=== PATIENT | male | born 1965 | race African-American/Black ===

== ENCOUNTER 2019-05-06 17:31 | Inpatient (IN) | payer SELFPAY ==
[2019-05-06] MEDS ORDERED: ACETAMINOPHEN 1000 MG/100 ML VIAL (NON FORMULARY) IVPB ONE (18:04)
[2019-05-06] MEDS ORDERED: LACTATED RINGERS SOLUTION 1000 ML INFUS.BAG IV ONE (18:04)
[2019-05-06] MEDS ORDERED: FAMOTIDINE 20 MG/50 ML IVPB 20 MG/50 ML MG IVPB ONE ×2 (18:09→18:41)
[2019-05-06] MEDS ORDERED: MAG HYDROX/AL HYDROX/SIMETH 30 ML UNIT-DOSE CUP PO ONE (18:10)
--- NOTE | 2019-05-06 18:12 | PDOC ---
History of Present Illness - General Chief Complaint: Pain Stated Complaint: FLU LIKE SYMPTOMS NOT EATING Time Seen by Provider: 05/06/19 17:38 History Source: Patient, Friend Exam Limitations: No Limitations - History of Present Illness Initial Comments: HPI: 53 y/o male presenting to [place] [facility] complaining of generalized body aches, malaise, subjective fevers, chills, diaphoresis. Symptoms started when he returned from a trip to [place] on Friday. Decreased appetite but drinking fluids with normal urinary frequency. Developed persistent hiccups two days ago. Has been taking Theraflu, Acetaminophen, and Dimetapp with some temporary symptom improvement. Pt is accompanied by a close friend who reports the pt appeared more sick this afternoon. She observed more generalized weakness and noticed the pt had a bowel movement while on the sofa. Pt states he was unable to make it to the bathroom. No swelling or tenderness in his calves. No personal or family history of bleeding disorders. Social Hx: - EtOH: social, last used in [place] - Tobacco: Remote smoking history - Street drugs: Denies - Denies OTC vitamins, supplements Medical Hx: - Asthma, managed with Symbicort Surgical Hx: - Remote knee surgery Review of Systems: In addition to that documented in the HPI above, the additional ROS was obtained : Constitutional- Endorses fevers and chills Head- Denies vision changes ENMT- Denies sore throat CV- Denies chest pain Resp- Denies SOB, wheezing, cough GI- Denies abdominal pain, vomiting, or diarrhea - Denies painful urination, hematuria MSK- Denies recent trauma Skin- Denies new rashes Neuro- Denies new numbness or tingling or weakness Endocrine- Denies polyuria Heme- Denies bleeding or bruising Physical Examination: Vital signs and nursing notes reviewed. Constitutional- Puny appearing adult male in no acute distress but mild obvious discomfort. Found semi-fowlers on hospital stretcher. Head- Normocephalic. No obvious external signs of trauma. Eyes- PERRL. EOMI. No nystagmus. Sclerae white. Conjunctiva moist and not injected. Ears- Hearing grossly intact. Nose- No nasal discharge. Throat- Oral cavity and pharynx normal. No inflammation, swelling, exudate, or lesions. Teeth and gingiva in good general condition. Neck- Supple, trachea is midline. Cardiovascular / Chest- Regular rate and regular rhythm. No murmur, rubs, clicks , or gallops. Peripheral pulses- radial pulses full. No pretibial edema. Respiratory- Breathing mildly labored. Frequent hiccups. Equal chest rise and fall. Diffuse rhonchi in left posterior burnett. No stridor, wheezing, or rales. Gastrointestinal- Discomfort in LUQ without grimace, rebound, or guarding. Able to transition from supine to fowlers without obvious discomfort. No hepatosplenomegaly. No pulsatile masses. No overlying skin lesions or obvious signs of trauma. Neuro- Alert and oriented x4, but slowed speech with frequent pausing before recollecting answers. Moving all four extremities spontaneously. No facial asymmetry. No slurred speech. Sensation to all four extremities intact. No nuchal rigidity. Intact finger to nose. MSK- No diffuse tenderness to paraspinal or direct spinal tenderness in lumbar region. Skin- Warm, dry, and intact. No bruising, rashes, or other lesions. - No R or L CVA tenderness. Psych- Affect- appropriate. Mood- normal. Speech was non-labored, non- pressured. MDM: 53 y/o male presenting with generalized weakness, myalgias, fevers, chills, diaphoresis. Febrile at triage. Vitals unremarkable for hypotension or tachycardia. Physical exam as described above. Noted borderline hypoxic on room air; secondary to hiccups? Possible influenza with generalized fatigue, however unclear cause for hiccups and slowed mentation. Ordered Lipase and CMP to evaluate for possible biliary vs pancreatic pathology given the abdominal discomfort - possibly causing diaphragmatic irritation (low suspicion). Will evaluate for PNA with CXR. Will evaluate for ICH with HCT. Low suspicion for CVA. Ordered LR IVFB, Acetaminophen, Pepcid, Maaylox, and Relgan for symptom relief. 06 May 2019 19:03 PM Pt signed out to ED Attending Dr. Maldonado after he was verbally appraised of the pts HPI, current ED course, and plan of management. Will f/u pending labs and imaging results. Dispo pending. Luigi Melton M.D., PGY2 Emergency Medicine Resident Past History - Past Medical History Allergies/Adverse Reactions: Allergies Allergy/AdvReac Type Severity Reaction Status Date / Time shellfish derived Allergy Intermediate Itching Verified 05/06/19 17:33 Home Medications: Ambulatory Orders Budesonide/Formeterol Fumarate [SYMBICORT 160/4.5mcg -] 1 puff IN DAILY Asthma: Yes COPD: No - Psycho Social/Smoking Cessation Hx Smoking History: Never smoked Information on smoking cessation initiated: No Hx Alcohol Use: No Drug/Substance Use Hx: No *Physical Exam - Vital Signs Last Vital Signs Temp Pulse Resp BP Pulse Ox 100.6 F H 62 16 130/86 96 05/06/19 17:33 05/06/19 17:33 05/06/19 17:33 05/06/19 17:33 05/06/19 17:33 ED Treatment Course - LABORATORY CBC & Chemistry Diagram: 05/06/19 18:25 05/06/19 18:20 - RADIOLOGY Radiology Studies Ordered: Category Date Time Status HEAD CT WITHOUT CONTRAST [CT] Stat CT Scan 05/06/19 18:10 Ordered CHEST PA & LAT [RAD] Stat Radiology 05/06/19 18:03 Ordered Discharge - Discharge Information Problems reviewed: Yes Clinical Impression/Diagnosis: Fever Qualifiers: Fever type: unspecified Qualified Code(s): R50.9 - Fever, unspecified Condition: Stable - Follow up/Referral - Patient Discharge Instructions - Post Discharge Activity
[2019-05-06] MEDS ORDERED: METOCLOPRAMIDE HCL INJECTION 10 MG/2 ML VIAL IVPB ONE (18:35)
--- NOTE | 2019-05-06 18:40 | PDOC ---
Attending Attestation - Resident Resident Name: Luigi Melton - ED Attending Attestation I have performed the following: I have examined & evaluated the patient, The case was reviewed & discussed with the resident, I agree w/resident's findings & plan, Exceptions are as noted - HPI HPI: 05/06/19 18:35 53 M with h/o asthma presenting to ED with 5 days of bodyaches, fevers, and malaise. Pt states that since he got back from [place] on Friday, he has been feeling sick. He reports pain all over his body. Pt also reports hiccups that started 3 days ago. Denies CP or SOB but states that the hiccups prevent him from breathing normally. Pt also reports an episode of diarrhea without nausea or vomiting. Pt's friend at bedside states that he has been very lethargic and weak, stumbling when he walks. Pt denies any dizziness. Denies KLEIN. Denies neck pain or stiffness. No falls. - Physicial Exam PE: 05/06/19 18:40 "GENERAL: Awake, alert, and fully oriented, in no acute distress. HEAD: No signs of trauma EYES: PERRLA, EOMI, sclera anicteric, conjunctiva clear ENT: Auricles normal inspection, hearing grossly normal, nares patent, oropharynx clear without exudates. Moist mucosa NECK: Nontender, no stepoffs, Normal ROM, supple, no lymphadenopathy, JVD, or masses LUNGS: Breath sounds equal, clear to auscultation bilaterally. No wheezes, and no crackles HEART: Regular rate and rhythm, normal S1 and S2, no murmurs, rubs or gallops ABDOMEN: Soft, nontender, normoactive bowel sounds. No guarding, no rebound. No masses EXTREMITIES: Normal range of motion, no edema. No clubbing or cyanosis. No cords, erythema, or tenderness NEUROLOGICAL: Cranial nerves II through XII intact. 5/5 strength and sensation in all extremities, Normal speech, normal gait, normal cerebellar function SKIN: Warm, Dry, normal turgor, no rashes or lesions noted. - Medical Decision Making 05/06/19 18:40 53 M with fevers, bodyaches, hiccups. Suspect viral infection, possibly flu. Pt without any signs of meningitis. No neuro deficits on exam. However, given report of stumbling, will obtain head CT. - Labs - CT head - CXR, UA - Flu swab - IVF, Tylenol, GI cocktail Pt signed out to oncoming attending at 7PM, pending labs, imaging, and re- evaluation
[2019-05-06] MEDS ORDERED: MAG HYDROX/AL HYDROX/SIMETH 30 ML UNIT-DOSE CUP ONE (18:41)
[2019-05-06] MEDS ORDERED: METOCLOPRAMIDE HCL INJECTION 10 MG/2 ML VIAL ONE (18:41)
[2019-05-06] MEDS ORDERED: ACETAMINOPHEN INJECTION 100 ML IVPB ONE (18:41)
[2019-05-06 18:43] LABS: BASO % 0.1 % (0-2.0); HEMATOCRIT 37.7 % (35.4-49); HEMOGLOBIN 12.8 GM/dl (11.7-16.9); LYMPH % 8.5 % (8-40); MCH 30.3 pg (25.7-33.7); MCHC 34.1 g/dl (32.0-35.9); MEAN PLT VOLUME 9.1 fl (7.5-11.1); MONO % 7.6 % (3.8-10.2); NEUT % 83.8 % (42.8-82.8); PLATELET COUNT 137 K/MM3 (134-434); RBC 4.24 M/mm3 (4.00-5.60); RDW 13.3 % (11.9-15.9)
[2019-05-06 18:55] LABS: ALBUMIN 2.9 g/dl (3.4-5.0); BILIRUBIN,TOTAL 0.8 mg/dl (0.2-1); CALCIUM 7.8 mg/dl (8.5-10); CREATININE 2.4 mg/dl (0.55-1.3); MAGNESIUM 1.8 mg/dL (1.8-2.4); PHOSPHOROUS 2.1 mg/dl (2.5-4.9); POTASSIUM 3.2 mmol/L (3.5-5.1); TOT PROT 6.5 g/dl (6.4-8.2)
--- NOTE | 2019-05-06 19:41 | PDOC ---
*Physical Exam - Vital Signs Last Vital Signs Temp Pulse Resp BP Pulse Ox 100.6 F H 62 16 130/86 96 05/06/19 17:33 05/06/19 17:33 05/06/19 17:33 05/06/19 17:33 05/06/19 17:33 ED Treatment Course - LABORATORY CBC & Chemistry Diagram: 05/06/19 18:25 05/06/19 18:20 - ADDITIONAL ORDERS Additional order review: Laboratory Results 05/06/19 05/06/19 05/06/19 18:40 18:20 18:20 Sodium 126 L Potassium 3.2 L Chloride 92 L Carbon Dioxide 25 Anion Gap 9 BUN 27.0 H Creatinine 2.4 H Est GFR (CKD-EPI)AfAm 34.40 Est GFR (CKD-EPI)NonAf 29.68 Random Glucose 150 H Calcium 7.8 L Phosphorus 2.1 L Magnesium 1.8 Total Bilirubin 0.8 AST 140 H ALT 55 Alkaline Phosphatase 56 Creatine Kinase 3495 H Troponin I 0.32 H Total Protein 6.5 Albumin 2.9 L 05/06/19 18:25 RBC 4.24 MCV 89.0 MCHC 34.1 RDW 13.3 MPV 9.1 Neutrophils % 83.8 H Lymphocytes % 8.5 Monocytes % 7.6 Eosinophils % 0.0 Basophils % 0.1 - RADIOLOGY Radiology Studies Ordered: Category Date Time Status CHEST CT WITHOUT CONTRAST [CT] Stat CT Scan 05/06/19 19:37 Ordered - Medications Given in the ED: ED Medications Discontinued Medications Generic Name Dose Route Start Last Admin Trade Name Freq PRN Reason Stop Dose Admin Acetaminophen 1,000 mg 05/06/19 18:04 05/06/19 19:02 Ofirmev Injection - IVPB 05/06/19 18:05 1,000 mg ONCE ONE Administration Al Hydroxide/Mg Hydroxide 30 ml 05/06/19 18:10 05/06/19 19:03 Mylanta Oral Suspension - PO 05/06/19 18:11 30 ml ONCE ONE Administration Famotidine/Sodium Chloride 20 mg in 50 mls @ 100 mls/hr 05/06/19 18:09 19:11 Pepcid 20 Mg Premixed Ivpb - IVPB 05/06/19 18:38 100 mls/hr ONCE ONE Administration Lactated Ringer's 1,000 ml 05/06/19 18:04 05/06/19 19:02 Lactated Ringers Solution IV 05/06/19 18:05 1,000 ml ONCE ONE Administration Metoclopramide HCl 10 mg 05/06/19 18:35 05/06/19 19:22 Reglan Injection - IVPB 05/06/19 18:36 10 mg ONCE ONE Administration Medical Decision Making - Medical Decision Making 05/06/19 19:[address] Gomez and Dr. Melton around 7pm. Pt is a 53y M hx of asthma presents with several days of body aches, fevers, malaise and cough since getting back from [place]. Pt notes a non productive cough w/o leg swelling/hemoptysis. also notes constant hiccups. Pt ntos an episode of diarrhea prior to arrival, but denies any abd pain, headache, neck pain, cp, grossman, leg swelling. on exanm: pt diaphoretic rales on L base rrr, no mrg abd soft nontender no edema or calft enderness, negative homans labs reviewed and noted for suspected TAMI (no baseline), trop elev to .3, ekg non ischemic. +leukocytosis cxr noted for LLL infiltrate awaiting CT to further evaluate consolidation vs wedge infarct/PE (unable to obtain CTA due to the patients cr) will give community acquired pna abx sepsis orderset initiated anticipate admission for further management 05/06/19 20:50 ct chest noted for pna, suspect his hiccups may be due to phrenic nerve irritateion based on location of pna. also consider legionella with hyponateemia Discharge - Discharge Information Problems reviewed: Yes Clinical Impression/Diagnosis: TAMI (acute kidney injury), Hyponatremia, Sepsis due to pneumonia Pneumonia Qualifiers: Pneumonia type: due to unspecified organism Laterality: left Lung location: lower lobe of lung Qualified Code(s): J18.9 - Pneumonia, unspecified organism Condition: Guarded - Admission Yes - Follow up/Referral - Patient Discharge Instructions - Post Discharge Activity
[2019-05-06] MEDS ORDERED: SODIUM CHLORIDE 1,000 ML IV ONE (19:43)
[2019-05-06] MEDS ORDERED: CEFTRIAXONE 1 GM in DEXTROSE 5%-WATER - 50 ML IVPB ONE (19:58)
[2019-05-06] MEDS ORDERED: AZITHROMYCIN IVPB 500 MG in DEXTROSE 5%-WATER - 250 ML IVPB ONE (19:59)
[2019-05-06] MEDS ORDERED: cefTRIAXone SODIUM 1 GM VIAL ONE (20:42)
[2019-05-06] MEDS ORDERED: AZITHROMYCIN 500 MG VIAL IVPB ONE (21:09)
--- NOTE | 2019-05-06 21:24 | HP ---
CHIEF COMPLAINT: Fever, body aches, weakness PCP: Dr. Yeh HISTORY OF PRESENT ILLNESS: 53 year-old male with no significant PMH, presented to [facility] for evaluation of body aches, malaise, sweats and chills. Symptoms started six days ago when he returned from a trip to [place]. Self-treated with OTC remedies. Decreased PO intake Family members report patient's seemed slightly confused, his gait was unsteady, and he an episode of fecal incontinence which prompted them to bring him to the ED. 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[place], last there in November 2018; traveled to [place] this past weekend, stayed at a private home and at the [employer] Smoking: quit 22 years ago Alcohol: occasional beer Drugs: denies Family history: father 70s of pneumonia; mother a&w; brother and sister a&w ; 1 son a&w Allergies shellfish derived Allergy (Intermediate, Verified 05/06/19 17:33) Itching HOME MEDICATIONS: Home Medications Medication Instructions Recorded Budesonide/Formeterol Fumarate 1 puff IN DAILY 05/06/19 [SYMBICORT 160/4.5mcg -] REVIEW OF SYSTEMS CONSTITUTIONAL: +sweats, chills, weakness, body aches, loss of appetite Absent: weight change HEENT: Absent: rhinorrhea, nasal congestion, throat pain, throat swelling, difficulty swallowing, mouth swelling, ear pain, eye pain, visual changes CARDIOVASCULAR: Absent: chest pain, syncope, palpitations, irregular heart rate, lightheadedness , peripheral edema RESPIRATORY: Absent: cough, shortness of breath, dyspnea with exertion, orthopnea, wheezing, stridor, hemoptysis GASTROINTESTINAL: Absent: abdominal pain, abdominal distension, nausea, vomiting, diarrhea, constipation, melena, hematochezia GENITOURINARY: Absent: dysuria, frequency, urgency, hesitancy, hematuria, flank pain, genital pain MUSCULOSKELETAL: Absent: myalgia, arthralgia, joint swelling, back pain, neck pain SKIN: Absent: rash, itching, pallor HEMATOLOGIC/IMMUNOLOGIC: Absent: easy bleeding, easy bruising, lymphadenopathy, frequent infections ENDOCRINE: Absent: unexplained weight gain, unexplained weight loss, heat intolerance, cold intolerance NEUROLOGIC: Absent: headache, focal weakness or paresthesias, dizziness, unsteady gait, seizure, mental status changes, bladder or bowel incontinence PSYCHIATRIC: Absent: anxiety, depression, suicidal or homicidal ideation, hallucinations. PHYSICAL EXAMINATION Vital Signs - 24 hr 05/06/19 05/06/19 17:33 20:35 Temperature 100.6 F H 99.5 F Pulse Rate 62 Pulse Rate [ 104 H Left Radial] Respiratory 16 16 Rate Blood Pressure 130/86 Blood Pressure 135/87 [Left Arm] O2 Sat by Pulse 96 96 Oximetry (%) GENERAL: A&Ox3; speech content is appropriate but occasionally delayed responses HEAD: Normal with no signs of trauma. EYES: Pupils equal, round and reactive to light, extraocular movements intact, sclera anicteric, conjunctiva clear. No lid lag. EARS, NOSE, THROAT: Ears normal, nares patent, oropharynx clear without exudates. Dry mucous membranes. NECK: Normal range of motion, supple without lymphadenopathy, JVD, or masses. LUNGS: Diminished at the bases HEART: Regular rate and rhythm, normal S1 and S2 ABDOMEN: Soft, nontender, not distended, normoactive bowel sounds MUSCULOSKELETAL: Normal range of motion at all joints. No bony deformities or tenderness. No CVA tenderness. UPPER EXTREMITIES: 2+ pulses, warm, well-perfused. No cyanosis. No clubbing. No peripheral edema. LOWER EXTREMITIES: 2+ pulses, warm, well-perfused. No calf tenderness. No peripheral edema. NEUROLOGICAL: Cranial nerves II-XII intact. Normal speech. Ataxic gait Laboratory Results - last 24 hr 05/06/19 05/06/19 05/06/19 18:20 18:20 18:20 WBC RBC Hgb Hct MCV MCH MCHC RDW Plt Count MPV Absolute Neuts (auto) Neutrophils % Lymphocytes % Monocytes % Eosinophils % Basophils % D-Dimer < 215 Sodium 126 L Potassium 3.2 L Chloride 92 L Carbon Dioxide 25 Anion Gap 9 BUN 27.0 H Creatinine 2.4 H Est GFR (CKD-EPI)AfAm 34.40 Est GFR (CKD-EPI)NonAf 29.68 Random Glucose 150 H Calcium 7.8 L Phosphorus Magnesium Total Bilirubin 0.8 AST 140 H ALT 55 Alkaline Phosphatase 56 Creatine Kinase 3495 H Creatine Kinase Index 0.5 CK-MB (CK-2) 18.4 H Troponin I Total Protein 6.5 Albumin 2.9 L Lipase Influenza A (Rapid) Negative Influenza B (Rapid) Negative 05/06/19 05/06/19 05/06/19 18:20 18:25 18:40 WBC 13.0 H RBC 4.24 Hgb 12.8 Hct 37.7 MCV 89.0 MCH 30.3 MCHC 34.1 RDW 13.3 Plt Count 137 MPV 9.1 Absolute Neuts (auto) 10.9 Neutrophils % 83.8 H Lymphocytes % 8.5 Monocytes % 7.6 Eosinophils % 0.0 Basophils % 0.1 D-Dimer Sodium Potassium Chloride Carbon Dioxide Anion Gap BUN Creatinine Est GFR (CKD-EPI)AfAm Est GFR (CKD-EPI)NonAf Random Glucose Calcium Phosphorus 2.1 L Magnesium 1.8 Total Bilirubin AST ALT Alkaline Phosphatase Creatine Kinase Creatine Kinase Index CK-MB (CK-2) Troponin I 0.32 H Total Protein Albumin Lipase 57 L Influenza A (Rapid) Influenza B (Rapid) ASSESSMENT/PLAN: 53 year-old male with no significant PMH, presented to the [facility] for evaluation of body aches, malaise, sweats and chills. Admitted for sepsis secondary to CAP. 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 Full code. Visit type - Emergency Visit Emergency Visit: Yes ED Registration Date: 05/06/19 Care time: The patient presented to the Emergency Department on the above date and was hospitalized for further evaluation of their emergent condition. - New Patient This patient is new to me today: Yes Date on this admission: 05/08/19 - Critical Care Critical Care patient: Yes Total Critical Care Time (in minutes): 60 Critical Care Statement: The care of this patient involved high complexity decision making to prevent further life threatening deterioration of the patient 's condition and/or to evaluate & treat vital organ system(s) failure or risk of failure.
[2019-05-06 22:33] VITALS: BMI 30.2
[2019-05-06 22:45] LABS: VENOUS PC02 40.5 mmHg (38-52); VENOUS PH 7.41 (7.31-7.41); VENOUS PO2 < 49 mmHg (28-48)
[2019-05-06] MEDS ORDERED: SODIUM CHLORIDE 1,000 ML IV STA (22:47)
[2019-05-06 23:30] LABS: AMORP URATES 1+ /hpf (NONE SEEN)
[2019-05-06 23:31] LABS: URINE HYALINE CAST FEW /lpf
[2019-05-07] MEDS: POTASSIUM CHLORIDE TABS 20 MEQ TABLET.ER (FP) PO SCH ×2 (00:05→04:52)
[2019-05-07] MEDS: ALBUTEROL SO4 2.5/IPRATROPIUM 0.5 INH SOL 3 ML VIAL.NEB. NEB SCH ×5 (00:37→21:45)
[2019-05-07] MEDS ORDERED: ACETAMINOPHEN 325 MG TABLET (FP) PO ONE (05:50)
[2019-05-07] MEDS: HEPARIN NA (PORCINE) 5,000 UNITS/ML 1ML VIAL SQ SCH ×3 (06:00→21:45)
[2019-05-07 07:35] LABS: BLOOD UREA NITROGEN 30.2 mg/dL (7-18); CALCIUM 8.1 mg/dL (8.5-10.1); CREATININE 2.4 mg/dL (0.55-1.3); POTASSIUM 3.7 mmol/L (3.5-5.1)
[2019-05-07 08:00] LABS: BASO % 0.3 % (0-2.0); EOS % 0.1 % (0-4.5); HEMATOCRIT 38.8 % (35.4-49); HEMOGLOBIN 12.9 GM/dl (11.7-16.9); MCH 29.9 pg (25.7-33.7); MCHC 33.3 g/dl (32.0-35.9); MEAN CELL VOLUME 89.7 fl (80-96); MEAN PLT VOLUME 9.6 fl (7.5-11.1); MONO % 6.6 % (3.8-10.2); PLATELET COUNT 146 K/MM3 (134-434); RBC 4.32 M/mm3 (4.00-5.60); RDW 13.5 % (11.9-15.9); WHITE BLOOD COUNT 11.1 K/mm3 (4.0-10.8)
[2019-05-07] MEDS ORDERED: ALBUTEROL SO4 2.5/IPRATROPIUM 0.5 INH SOL 3 ML VIAL.NEB. NEB SCH (08:00)
[2019-05-07 08:05] LABS: ACTIVATED PTT 32.7 SECONDS (25.2-36.5)
[2019-05-07 08:10] LABS: INR 1.32 (0.82-1.09); PROTHROMBIN TIME (PATIENT) 14.7 SEC (10.2-13.0)
[2019-05-07 08:11] LABS: ALBUMIN 2.9 g/dl (3.4-5.0); BILIRUBIN,TOTAL 0.4 mg/dl (0.2-1); CALCIUM 8.1 mg/dl (8.5-10); CREATININE 2.3 mg/dl (0.55-1.3); POTASSIUM 3.8 mmol/L (3.5-5.1); TOT PROT 6.5 g/dl (6.4-8.2)
[2019-05-07] MEDS ORDERED: SODIUM CHLORIDE 1,000 ML IV STA (08:51)
[2019-05-07] MEDS ORDERED: AZITHROMYCIN IVPB 500 MG/250 ML BAG IVPB SCH (10:00)
[2019-05-07] MEDS ORDERED: CEFTRIAXONE 1 G/50 ML PREMIX 50 ML IVPB SCH (10:00)
[2019-05-07] MEDS: BUDESONIDE/FORMETEROL FUMARATE 160/4.5 mcg INHALER IH SCH (10:55)
[2019-05-07] MEDS ORDERED: PT OWN MED DRAWER 7, Y5N ONE (11:11)
--- NOTE | 2019-05-07 13:11 | EKG ---
Test Reason : Blood Pressure : / mmHG Vent. Rate : 115 BPM Atrial Rate : 115 BPM P-R Int : 126 ms QRS Dur : 096 ms QT Int : 306 ms P-R-T Axes : 044 -45 041 degrees QTc Int : 423 ms SINUS TACHYCARDIA WITH FREQUENT PREMATURE VENTRICULAR COMPLEXES LEFT ANTERIOR FASCICULAR BLOCK ABNORMAL ECG NO PREVIOUS ECGS AVAILABLE Confirmed by DAY HEALY MD ([id number]) on 05/07/2019 1:10:37 PM Referred By: Prosper GLEZ Confirmed By:DAY HEALY MD
[2019-05-07] MEDS: SODIUM CHLORIDE 1,000 ML IV SCH (14:11)
[2019-05-07] MEDS: ACETAMINOPHEN 1000 MG/100 ML VIAL (NON FORMULARY) IVPB PRN ×2 (14:11→22:40)
[2019-05-07 14:48] LABS: BASO % 0.1 % (0-2.0); EOS % 0.1 % (0-4.5); HEMATOCRIT 35.5 % (35.4-49); HEMOGLOBIN 11.7 GM/dl (11.7-16.9); LYMPH % 7.1 % (8-40); MCH 29.5 pg (25.7-33.7); MEAN CELL VOLUME 89.7 fl (80-96); MEAN PLT VOLUME 9.9 fl (7.5-11.1); MONO % 6.4 % (3.8-10.2); NEUT % 86.3 % (42.8-82.8); PLATELET COUNT 141 K/MM3 (134-434); RBC 3.96 M/mm3 (4.00-5.60); RDW 14.1 % (11.9-15.9); WHITE BLOOD COUNT 10.3 K/mm3 (4.0-10.8)
[2019-05-07 14:59] LABS: ALBUMIN 2.5 g/dl (3.4-5.0); BILIRUBIN,TOTAL 0.5 mg/dl (0.2-1); CALCIUM 7.5 mg/dl (8.5-10); POTASSIUM 3.6 mmol/L (3.5-5.1)
[2019-05-07 15:06] LABS: BILIRUBIN,DIRECT 0.1 mg/dL (0.0-0.2)
--- NOTE | 2019-05-07 16:55 | CON.ID ---
Consult Consult Specialty:: infectious diseases Referred by:: Jailyn Reason for Consultation:: fever,confusion - History of Present Illness Chief Complaint: fever,weakness History of Present Illness: 53 y/o male complaining of generalized body aches, malaise, subjective fevers, chills, diaphoresis. Symptoms started when he returned from a trip to [place] on Friday. Decreased appetite but drinking fluids with normal urinary frequency. Developed persistent hiccups two days ago. Has been taking Theraflu, Acetaminophen, and Dimetapp with some temporary symptom improvement. patient was worked up and found to have legionella currently patient starting to feel better - History Source History Provided By: Patient, Medical Record Limitations to Obtaining History: No Limitations - Alcohol/Substance Use Hx Alcohol Use: Yes (sometimes) - Smoking History Smoking history: Never smoked Home Medications - Allergies Allergies/Adverse Reactions: Allergies Allergy/AdvReac Type Severity Reaction Status Date / Time shellfish derived Allergy Intermediate Itching Verified 05/06/19 17:33 - Home Medications Home Medications: Ambulatory Orders Budesonide/Formeterol Fumarate [SYMBICORT 160/4.5mcg -] 1 puff IN DAILY Review of Systems - Review of Systems Constitutional: reports: Chills, Fever HENT: reports: No Symptoms Neck: reports: No Symptoms Cardiovascular: reports: No Symptoms Gastrointestinal: reports: No Symptoms Musculoskeletal: reports: No Symptoms Integumentary: reports: No Symptoms Neurological: reports: Confusion Endocrine: reports: No Symptoms Hematology/Lymphatic: reports: No Symptoms Psychiatric: reports: No Symptoms Physical Exam Vital Signs: Vital Signs Temperature 100.1 F H 05/07/19 14:00 Pulse Rate 112 H 05/07/19 14:00 Respiratory Rate 19 05/07/19 14:00 Blood Pressure 169/72 05/07/19 14:00 O2 Sat by Pulse Oximetry (%) 96 05/07/19 07:55 Constitutional: Yes: Well Nourished, No Distress, Calm Eyes: Yes: Conjunctiva Clear HENT: Yes: Atraumatic, Normocephalic Neck: Yes: Supple, Trachea Midline Respiratory: Yes: Regular, Poor Air Entry Gastrointestinal: Yes: Normal Bowel Sounds, Soft Musculoskeletal: Yes: WNL Extremities: Yes: WNL Neurological: Yes: Alert, Oriented Labs: CBC, BMP 05/07/19 14:25 05/07/19 14:25 Imaging - Results Chest X-ray: Report Reviewed, Image Reviewed Cat Scan: Report Reviewed, Image Reviewed Assessment/Plan sepsis pneumonia leginoella fever confusion pam rhabdo plan continue levaquin hydration monitor fevers await for all reports rest as per the team
--- NOTE | 2019-05-07 22:05 | PN ---
Documentation entered by Isidra Li SCRIBE, acting as scribe for Rhea Chicas NP. Physical Exam: SUBJECTIVE: Patient seen and examined. Pt c/o of hiccups. States feeling his leg muscles are stiff, otherwise states slowly regaining his strength back. OBJECTIVE: Vital Signs Period Temp Pulse Resp BP Sys/Callahan Pulse Ox Last 24 Hr 98.5 F-101.9 F 62-106 16-20 130-152/74-87 96-96 GENERAL: A&Ox3; speech content is appropriate but still with occasionally delayed responses; could not do serial 7s LUNGS: Diminished at the bases HEART: Regular rate and rhythm, normal S1 and S2 ABDOMEN: Soft, nontender, not distended, normoactive bowel sounds MUSCULOSKELETAL: Normal range of motion at all joints. No bony deformities or tenderness. No CVA tenderness. UPPER EXTREMITIES: 2+ pulses, warm, well-perfused. No cyanosis. No clubbing. No peripheral edema. LOWER EXTREMITIES: 2+ pulses, warm, well-perfused. No calf tenderness. No peripheral edema. NEUROLOGICAL: Cranial nerves II-XII intact. Normal speech. Gait not observed today. Laboratory Results - last 24 hr 05/06/19 05/06/19 05/06/19 18:20 18:20 18:20 WBC RBC Hgb Hct MCV MCH MCHC RDW Plt Count MPV Absolute Neuts (auto) Neutrophils % Lymphocytes % Monocytes % Eosinophils % Basophils % PT with INR INR PTT (Actin FS) D-Dimer < 215 VBG pH POC VBG pCO2 POC VBG pO2 VBG HCO3 VBG O2 Sat (Regi) VBG Base Excess Sodium 126 L Potassium 3.2 L Chloride 92 L Carbon Dioxide 25 Anion Gap 9 BUN 27.0 H Creatinine 2.4 H Est GFR (CKD-EPI)AfAm 34.40 Est GFR (CKD-EPI)NonAf 29.68 Random Glucose 150 H Lactic Acid Calcium 7.8 L Phosphorus Magnesium Total Bilirubin 0.8 AST 140 H ALT 55 Alkaline Phosphatase 56 Ammonia Creatine Kinase 3495 H Creatine Kinase Index 0.5 CK-MB (CK-2) 18.4 H Troponin I Total Protein 6.5 Albumin 2.9 L Lipase Urine Color Urine Appearance Urine pH Urine Protein Urine Glucose (UA) Urine Ketones Urine Blood Urine Nitrite Urine Bilirubin Urine Urobilinogen Ur Leukocyte Esterase Urine RBC Urine WBC Amorphous Urates Urine Bacteria Hyaline Casts Ur Random Creatinine Ur Random Sodium Influenza A (Rapid) Negative Influenza B (Rapid) Negative 05/06/19 05/06/19 05/06/19 18:20 18:25 18:40 WBC 13.0 H RBC 4.24 Hgb 12.8 Hct 37.7 MCV 89.0 MCH 30.3 MCHC 34.1 RDW 13.3 Plt Count 137 MPV 9.1 Absolute Neuts (auto) 10.9 Neutrophils % 83.8 H Lymphocytes % 8.5 Monocytes % 7.6 Eosinophils % 0.0 Basophils % 0.1 PT with INR INR PTT (Actin FS) D-Dimer VBG pH POC VBG pCO2 POC VBG pO2 VBG HCO3 VBG O2 Sat (Regi) VBG Base Excess Sodium Potassium Chloride Carbon Dioxide Anion Gap BUN Creatinine Est GFR (CKD-EPI)AfAm Est GFR (CKD-EPI)NonAf Random Glucose Lactic Acid Calcium Phosphorus 2.1 L Magnesium 1.8 Total Bilirubin AST ALT Alkaline Phosphatase Ammonia Creatine Kinase Creatine Kinase Index CK-MB (CK-2) Troponin I 0.32 H Total Protein Albumin Lipase 57 L Urine Color Urine Appearance Urine pH Urine Protein Urine Glucose (UA) Urine Ketones Urine Blood Urine Nitrite Urine Bilirubin Urine Urobilinogen Ur Leukocyte Esterase Urine RBC Urine WBC Amorphous Urates Urine Bacteria Hyaline Casts Ur Random Creatinine Ur Random Sodium Influenza A (Rapid) Influenza B (Rapid) 05/06/19 05/06/19 05/06/19 20:25 20:56 21:00 WBC RBC Hgb Hct MCV MCH MCHC RDW Plt Count MPV Absolute Neuts (auto) Neutrophils % Lymphocytes % Monocytes % Eosinophils % Basophils % PT with INR INR PTT (Actin FS) D-Dimer VBG pH 7.41 POC VBG pCO2 40.5 POC VBG pO2 < 49 H VBG HCO3 25.0 VBG O2 Sat (Regi) 61.6 L VBG Base Excess 0.8 Sodium Potassium Chloride Carbon Dioxide Anion Gap BUN Creatinine Est GFR (CKD-EPI)AfAm Est GFR (CKD-EPI)NonAf Random Glucose Lactic Acid 1.6 Calcium Phosphorus Magnesium Total Bilirubin AST ALT Alkaline Phosphatase Ammonia Creatine Kinase Creatine Kinase Index CK-MB (CK-2) Troponin I 0.32 H Total Protein Albumin Lipase Urine Color Urine Appearance Urine pH Urine Protein Urine Glucose (UA) Urine Ketones Urine Blood Urine Nitrite Urine Bilirubin Urine Urobilinogen Ur Leukocyte Esterase Urine RBC Urine WBC Amorphous Urates Urine Bacteria Hyaline Casts Ur Random Creatinine Ur Random Sodium Influenza A (Rapid) Influenza B (Rapid) 05/06/19 05/06/19 05/06/19 23:00 23:00 23:00 WBC RBC Hgb Hct MCV MCH MCHC RDW Plt Count MPV Absolute Neuts (auto) Neutrophils % Lymphocytes % Monocytes % Eosinophils % Basophils % PT with INR INR PTT (Actin FS) D-Dimer VBG pH POC VBG pCO2 POC VBG pO2 VBG HCO3 VBG O2 Sat (Regi) VBG Base Excess Sodium Potassium Chloride Carbon Dioxide Anion Gap BUN Creatinine Est GFR (CKD-EPI)AfAm Est GFR (CKD-EPI)NonAf Random Glucose Lactic Acid Calcium Phosphorus Magnesium Total Bilirubin AST ALT Alkaline Phosphatase Ammonia Creatine Kinase Creatine Kinase Index CK-MB (CK-2) Troponin I Total Protein Albumin Lipase Urine Color Yellow Urine Appearance Clear Urine pH 5.5 Urine Protein 3+ H Urine Glucose (UA) Negative Urine Ketones Negative Urine Blood 3+ H Urine Nitrite Negative Urine Bilirubin Negative Urine Urobilinogen 0.2 Ur Leukocyte Esterase Negative Urine RBC 10-20 Urine WBC 2-5 Amorphous Urates 1+ Urine Bacteria Many Hyaline Casts Few Ur Random Creatinine 274.0 Ur Random Sodium < 10 L Influenza A (Rapid) Influenza B (Rapid) 05/07/19 05/07/19 05/07/19 01:00 01:00 01:00 WBC RBC Hgb Hct MCV MCH MCHC RDW Plt Count MPV Absolute Neuts (auto) Neutrophils % Lymphocytes % Monocytes % Eosinophils % Basophils % PT with INR INR PTT (Actin FS) D-Dimer VBG pH POC VBG pCO2 POC VBG pO2 VBG HCO3 VBG O2 Sat (Regi) VBG Base Excess Sodium 128 L Potassium 3.7 Chloride 94 L Carbon Dioxide 25 Anion Gap 9 BUN 30.2 H Creatinine 2.4 H Est GFR (CKD-EPI)AfAm 34.40 Est GFR (CKD-EPI)NonAf 29.68 Random Glucose 139 H Lactic Acid 1.5 Calcium 8.1 L Phosphorus Magnesium Total Bilirubin AST ALT Alkaline Phosphatase Ammonia 14.50 Creatine Kinase Creatine Kinase Index CK-MB (CK-2) Troponin I 0.31 H Total Protein Albumin Lipase Urine Color Urine Appearance Urine pH Urine Protein Urine Glucose (UA) Urine Ketones Urine Blood Urine Nitrite Urine Bilirubin Urine Urobilinogen Ur Leukocyte Esterase Urine RBC Urine WBC Amorphous Urates Urine Bacteria Hyaline Casts Ur Random Creatinine Ur Random Sodium Influenza A (Rapid) Influenza B (Rapid) 05/07/19 05/07/19 05/07/19 07:25 07:25 07:25 WBC 11.1 H RBC 4.32 Hgb 12.9 Hct 38.8 MCV 89.7 MCH 29.9 MCHC 33.3 RDW 13.5 Plt Count 146 MPV 9.6 Absolute Neuts (auto) 9.5 Neutrophils % 85.0 H Lymphocytes % 8.0 Monocytes % 6.6 Eosinophils % 0.1 D Basophils % 0.3 PT with INR 14.7 H INR 1.32 H PTT (Actin FS) 32.7 D-Dimer VBG pH POC VBG pCO2 POC VBG pO2 VBG HCO3 VBG O2 Sat (Regi) VBG Base Excess Sodium 128 L Potassium 3.8 Chloride 96 L Carbon Dioxide 24 Anion Gap 8 BUN 27.0 H Creatinine 2.3 H Est GFR (CKD-EPI)AfAm 36.22 Est GFR (CKD-EPI)NonAf 31.25 Random Glucose 133 H Lactic Acid Calcium 8.1 L Phosphorus Magnesium 2.0 Total Bilirubin 0.4 AST 190 H ALT 76 H Alkaline Phosphatase 61 Ammonia Creatine Kinase Creatine Kinase Index CK-MB (CK-2) Troponin I Total Protein 6.5 Albumin 2.9 L Lipase Urine Color Urine Appearance Urine pH Urine Protein Urine Glucose (UA) Urine Ketones Urine Blood Urine Nitrite Urine Bilirubin Urine Urobilinogen Ur Leukocyte Esterase Urine RBC Urine WBC Amorphous Urates Urine Bacteria Hyaline Casts Ur Random Creatinine Ur Random Sodium Influenza A (Rapid) Influenza B (Rapid) 05/07/19 07:25 WBC RBC Hgb Hct MCV MCH MCHC RDW Plt Count MPV Absolute Neuts (auto) Neutrophils % Lymphocytes % Monocytes % Eosinophils % Basophils % PT with INR INR PTT (Actin FS) D-Dimer VBG pH POC VBG pCO2 POC VBG pO2 VBG HCO3 VBG O2 Sat (Regi) VBG Base Excess Sodium Potassium Chloride Carbon Dioxide Anion Gap BUN Creatinine Est GFR (CKD-EPI)AfAm Est GFR (CKD-EPI)NonAf Random Glucose Lactic Acid Calcium Phosphorus Magnesium Total Bilirubin AST ALT Alkaline Phosphatase Ammonia Creatine Kinase Creatine Kinase Index CK-MB (CK-2) Troponin I 0.29 H Total Protein Albumin Lipase Urine Color Urine Appearance Urine pH Urine Protein Urine Glucose (UA) Urine Ketones Urine Blood Urine Nitrite Urine Bilirubin Urine Urobilinogen Ur Leukocyte Esterase Urine RBC Urine WBC Amorphous Urates Urine Bacteria Hyaline Casts Ur Random Creatinine Ur Random Sodium Influenza A (Rapid) Influenza B (Rapid) Active Medications Generic Name Dose Route Start Last Admin Trade Name [place] PRN Reason Stop Dose Admin Albuterol/Ipratropium 1 amp 05/07/19 00:30 05/07/19 00:37 Duoneb - NEB 1 amp RQID CARLOS ALBERTO Administration Budesonide/Formoterol Fumarate 1 puff 05/07/19 10:00 Symbicort 160/4.5mcg - IH DAILY CARLOS ALBERTO Heparin Sodium (Porcine) 5,000 unit 05/07/19 06:00 05/07/19 06:00 Heparin - SQ 5,000 unit TID CARLOS ALBERTO Administration Azithromycin 500 mg in 250 mls @ 250 mls/hr 05/07/19 10:00 Zithromax 500mg Ivpb (Pre-Docked) IVPB 05/10/19 10:59 DAILY CARLOS ALBERTO Ceftriaxone Sodium 50 mls @ 100 mls/hr 05/07/19 10:00 Ceftriaxone 1 Gm-D5w Bag IVPB DAILY [facility] Protocol ASSESSMENT/PLAN: Sepsis secondary to community-acquired pneumonia --CT: LLL pneumonia --Tm 101.9, leukocytosis resolved --Urine antigen positive for Legionella; hospital infection control advised; received phone call from Alejandra Del Rosario RN, [facility] ([phone]) who will want to phone interview the patient on Friday --confusion persists --seen and evaluated by ID, start levofloxacin (day #1) Hyponatremia --no change despite fluid resuscitation; may be element of SIADH in setting of sepsis --urine, serum osm ordered --check lytes in am, if no improvement or worsens, consider renal consult Hypokalemia -resolved Acute kidney injury --Cr 2.4 on admission, improved to 2.0 Rhabdomyolysis --IV fluids Elevated troponins --flat trending, likely demand from sepsis; no evidence of ACS Elevated AST --continue to monitor FEN Fluids: NS@125mL/hr Electrolytes: replete as indicated Nutrition: regular diet DVT prophylaxis: subq heparin Dispo: continues to require inpatient care. Full code. Visit type - Emergency Visit Emergency Visit: Yes ED Registration Date: 05/06/19 Care time: The patient presented to the Emergency Department on the above date and was hospitalized for further evaluation of their emergent condition. - New Patient This patient is new to me today: No - Critical Care Critical Care patient: No Rhea Chicas NP: This documentation has been prepared by the Guillermo godinez Maria, SCRIBE, under my direction and personally reviewed by me in its entirety. I confirm that the documentation accurately reflects all work, treatment, procedures, and medical decision making performed by me.
[2019-05-08] MEDS: HEPARIN NA (PORCINE) 5,000 UNITS/ML 1ML VIAL SQ SCH ×3 (06:58→21:19)
[2019-05-08] MEDS: ALBUTEROL SO4 2.5/IPRATROPIUM 0.5 INH SOL 3 ML VIAL.NEB. NEB SCH ×4 (08:10→20:26)
[2019-05-08 08:27] LABS: HEMATOCRIT 34.6 % (35.4-49); HEMOGLOBIN 11.4 GM/dl (11.7-16.9); MCH 29.6 pg (25.7-33.7); MCHC 32.9 g/dl (32.0-35.9); MEAN CELL VOLUME 90.1 fl (80-96); MEAN PLT VOLUME 9.3 fl (7.5-11.1); PLATELET COUNT 160 K/MM3 (134-434); RBC 3.84 M/mm3 (4.00-5.60); RDW 14.3 % (11.9-15.9); WHITE BLOOD COUNT 9.1 K/mm3 (4.0-10.8)
[2019-05-08 08:45] LABS: ALBUMIN 2.5 g/dl (3.4-5.0); BILIRUBIN,TOTAL 0.5 mg/dl (0.2-1); CALCIUM 8.2 mg/dl (8.5-10); CREATININE 1.7 mg/dl (0.55-1.3); MAGNESIUM 2.3 mg/dL (1.8-2.4); POTASSIUM 3.7 mmol/L (3.5-5.1); TOT PROT 5.9 g/dl (6.4-8.2)
[2019-05-08 09:25] LABS: PLATELET ESTIMATE ADEQUATE
--- NOTE | 2019-05-08 10:11 | PN ---
Physical Exam: SUBJECTIVE: Patient seen and examined at bedside. pt reports GARCIA, productive cough with cler/ yellow sputum,no other complains. OBJECTIVE: Vital Signs Period Temp Pulse Resp BP Sys/Callahan Pulse Ox Last 24 Hr 98.0 F-102.0 F 79-112 16-19 143-169/53-99 94-99 GENERAL: The patient is awake, alert, and fully oriented, in no acute distress. HEAD: Normal with no signs of trauma. EYES: PERRL, extraocular movements intact, sclera anicteric, conjunctiva clear. No ptosis. ENT: Ears normal, nares patent, oropharynx clear without exudates, moist mucous membranes. NECK: Trachea midline, full range of motion, supple. LUNGS: BS diminished, no wheezing , no wheezes, no crackles, no accessory muscle use. HEART: Regular rate and rhythm, S1, S2 without murmur, rub or gallop. ABDOMEN: Soft, nontender, nondistended, normoactive bowel sounds, no guarding, no rebound, no hepatosplenomegaly, no masses. EXTREMITIES: 2+ pulses, warm, well-perfused, no edema. NEUROLOGICAL: Cranial nerves II through XII grossly intact. Normal speech, gait not observed. PSYCH: Normal mood, normal affect. SKIN: Warm, dry, normal turgor, no rashes or lesions noted Laboratory Results - last 24 hr 05/07/19 05/07/19 05/07/19 07:10 14:25 14:25 WBC 10.3 RBC 3.96 L Hgb 11.7 Hct 35.5 MCV 89.7 MCH 29.5 MCHC 33.0 RDW 14.1 Plt Count 141 MPV 9.9 Absolute Neuts (auto) 8.9 Neutrophils % 86.3 H Neutrophils % (Manual) Band Neutrophils % Lymphocytes % 7.1 L Lymphocytes % (Manual) Monocytes % 6.4 Monocytes % (Manual) Eosinophils % 0.1 Eosinophils % (Manual) Basophils % 0.1 Platelet Estimate ESR Sodium 127 L Potassium 3.6 Chloride 100 Carbon Dioxide 21 Anion Gap 6 L BUN 26.0 H Creatinine 2.0 H Est GFR (CKD-EPI)AfAm 42.89 Est GFR (CKD-EPI)NonAf 37.00 Random Glucose 133 H Calcium 7.5 L Magnesium 2.0 Total Bilirubin 0.5 Direct Bilirubin 0.1 GGT 28 AST 191 H ALT 84 H Alkaline Phosphatase 63 Creatine Kinase Creatine Kinase Index CK-MB (CK-2) C-Reactive Protein 26.6 H Total Protein 6.0 L Albumin 2.5 L 05/07/19 05/07/19 05/08/19 14:25 14:25 07:25 WBC 9.1 RBC 3.84 L Hgb 11.4 L Hct 34.6 L MCV 90.1 MCH 29.6 MCHC 32.9 RDW 14.3 Plt Count 160 MPV 9.3 Absolute Neuts (auto) 7.4 Neutrophils % No Result Required. Neutrophils % (Manual) 71.0 Band Neutrophils % 4.0 Lymphocytes % No Result Required. Lymphocytes % (Manual) 16.0 Monocytes % Monocytes % (Manual) 7 Eosinophils % Eosinophils % (Manual) 2.0 Basophils % Platelet Estimate Adequate ESR 86 H Sodium Potassium Chloride Carbon Dioxide Anion Gap BUN Creatinine Est GFR (CKD-EPI)AfAm Est GFR (CKD-EPI)NonAf Random Glucose Calcium Magnesium Total Bilirubin Direct Bilirubin GGT AST ALT Alkaline Phosphatase Creatine Kinase 3595 H Creatine Kinase Index 0.3 CK-MB (CK-2) 12.0 H C-Reactive Protein Total Protein Albumin 05/08/19 07:25 WBC RBC Hgb Hct MCV MCH MCHC RDW Plt Count MPV Absolute Neuts (auto) Neutrophils % Neutrophils % (Manual) Band Neutrophils % Lymphocytes % Lymphocytes % (Manual) Monocytes % Monocytes % (Manual) Eosinophils % Eosinophils % (Manual) Basophils % Platelet Estimate ESR Sodium 134 L Potassium 3.7 Chloride 101 Carbon Dioxide 24 Anion Gap 9 BUN 21.0 H Creatinine 1.7 H Est GFR (CKD-EPI)AfAm 52.20 Est GFR (CKD-EPI)NonAf 45.04 Random Glucose 138 H Calcium 8.2 L Magnesium 2.3 Total Bilirubin 0.5 Direct Bilirubin GGT AST 171 H ALT 92 H Alkaline Phosphatase 71 Creatine Kinase Creatine Kinase Index CK-MB (CK-2) C-Reactive Protein Total Protein 5.9 L Albumin 2.5 L Active Medications Generic Name Dose Route Start Last Admin Trade Name Freq PRN Reason Stop Dose Admin Acetaminophen 1,000 mg 05/07/19 13:47 05/07/19 22:40 Ofirmev Injection - IVPB 1,000 mg Q6H PRN Administration PAIN LEVEL 1-5 Albuterol/Ipratropium 1 amp 05/07/19 00:30 05/07/19 21:45 Duoneb - NEB 1 amp RQID CARLOS ALBERTO Administration Budesonide/Formoterol Fumarate 1 puff 05/07/19 10:00 05/07/19 10:55 Symbicort 160/4.5mcg - IH 1 puff DAILY CARLOS ALBERTO Administration Heparin Sodium (Porcine) 5,000 unit 05/07/19 06:00 05/08/19 06:58 Heparin - SQ 5,000 unit TID CARLOS ALBERTO Administration Sodium Chloride 1,000 mls @ 125 mls/hr 05/07/19 09:00 05/07/19 14:11 Normal Saline - IV 125 mls/hr ASDIR CARLOS ALBERTO Administration Levofloxacin 750 mg in 150 mls @ 100 mls/hr 05/08/19 10:00 Levaquin 750 Mg Premixed Ivpb - IVPB DAILY CARLOS ALBERTO Protocol Microbiology 05/06/19 20:35 Blood Culture - Preliminary Blood - Peripheral Venous NO GROWTH OBTAINED AFTER 24 HOURS, INCUBATION TO CONTINUE FOR 4 DAYS. 05/06/19 20:25 Blood Culture - Preliminary Blood - Peripheral Venous NO GROWTH OBTAINED AFTER 24 HOURS, INCUBATION TO CONTINUE FOR 4 DAYS. 05/06/19 23:00 Legionella Antigen - Final- positive Urine For Antigen Detection Streptococcus pneumoniae Antigen (M - Final- Neg Urine culture pending ASSESSMENT/PLAN: 53 year-old male with hx of asthma, who presented to the [facility] for evaluation of body aches, malaise, sweats and chills. Admitted with CA. *Sepsis secondary to community-acquired pneumonia -CT: LLL pneumonia -Tm 102, leukocytosis resolved -Urine antigen positive for Legionella; hospital infection control advised; received phone call from Alejandra Del Rosario RN, [facility] ([phone]) who will want to phone interview the patient on Friday -confusion - resolved - ID following, on Levaquin -BC preliminary negative - Influenza A/ B negative - other viral panels pending - cont on Neb tx - encourage to use Incentive spirometer *Hyponatremia- improved - Na 126.128>134 - will f/u on urine, serum osm *Hypokalemia-resolved *Acute kidney injury -Cr 2.4 on admission, improved to 2.0>1.7 - will cont on IVF *Rhabdomyolysis - will monitor CPK - on IVF *Elevated troponins- likely demand ischemia due to sepsis - Trop trending down - No acute ST changes on *Elevated LFT's - like;ly due to sepsis - levels trending down - will check Hep profile - will f/u on LFT's - * Hx of asthma - will cont on home dose Symbicort *FEN Fluids: NS@125mL/hr Electrolytes: replete as indicated Nutrition: regular diet DVT prophylaxis: subq heparin Dispo: continues to require inpatient care. Full code. Visit type - Emergency Visit Emergency Visit: Yes ED Registration Date: 05/06/19 Care time: The patient presented to the Emergency Department on the above date and was hospitalized for further evaluation of their emergent condition. - New Patient This patient is new to me today: Yes Date on this admission: 05/09/19 - Critical Care Critical Care patient: No
[2019-05-08] MEDS: BUDESONIDE/FORMETEROL FUMARATE 160/4.5 mcg INHALER IH SCH (10:21)
[2019-05-08] MEDS: LACTOBACILLUS ACIDOPHILUS 1 TABLET PO SCH (10:45)
[2019-05-08] MEDS: SODIUM CHLORIDE 1,000 ML IV SCH (11:21)
--- NOTE | 2019-05-08 12:49 | PN ---
Progress Note, Physician History of Present Illness: Pt states he is starting to feel better. Has hiccups and has productive cough but denies SOB at this time. Febrile to 102F last night but has been afebrile so far today. - Current Medication List Current Medications: Active Medications Acetaminophen (Ofirmev Injection -) 1,000 mg IVPB Q6H PRN PRN Reason: PAIN LEVEL 1-5 Last Admin: 05/07/19 22:40 Dose: 1,000 mg Albuterol/Ipratropium (Duoneb -) 1 amp NEB RQID CARLOS ALBERTO Last Admin: 05/08/19 08:10 Dose: 1 amp Budesonide/Formoterol Fumarate (Symbicort 160/4.5mcg -) 1 puff IH DAILY [facility] Last Admin: 05/08/19 10:21 Dose: 1 puff Heparin Sodium (Porcine) (Heparin -) 5,000 unit SQ TID CARLOS ALBERTO Last Admin: 05/08/19 06:58 Dose: 5,000 unit Sodium Chloride (Normal Saline -) 1,000 mls @ 125 mls/hr IV ASDIR CARLOS ALBERTO Last Admin: 05/08/19 11:21 Dose: 125 mls/hr Levofloxacin (Levaquin 750 Mg Premixed Ivpb -) 750 mg in 150 mls @ 100 mls/hr IVPB DAILY [facility]; Protocol Last Admin: 05/08/19 10:45 Dose: 100 mls/hr Lactobacillus Acidophilus (Bacid -) 1 tab PO DAILY [facility] Last Admin: 05/08/19 10:45 Dose: 1 tab - Objective Vital Signs: Vital Signs Temperature 98.7 F 05/08/19 10:00 Pulse Rate 105 H 05/08/19 10:00 Respiratory Rate 19 05/08/19 10:00 Blood Pressure 158/84 05/08/19 10:00 O2 Sat by Pulse Oximetry (%) 97 05/08/19 10:00 Constitutional: Yes: No Distress, Calm Cardiovascular: Yes: Regular Rate and Rhythm Respiratory: Yes: Diminished (Lt base) Gastrointestinal: Yes: Normal Bowel Sounds, Soft Genitourinary: Yes: WNL Musculoskeletal: Yes: WNL Extremities: Yes: WNL Integumentary: Yes: WNL Neurological: Yes: Alert Labs: CBC, BMP 05/08/19 07:25 05/08/19 07:25 INR, PTT INR 1.32 (0.82-1.09) H 05/07/19 07:25 Microbiology 05/06/19 23:00 Urine - Urine Clean Catch Urine Culture - Final NO GROWTH OBTAINED 05/06/19 20:35 Blood - Peripheral Venous Blood Culture - Preliminary NO GROWTH OBTAINED AFTER 24 HOURS, INCUBATION TO CONTINUE FOR 4 DAYS. 05/06/19 20:25 Blood - Peripheral Venous Blood Culture - Preliminary NO GROWTH OBTAINED AFTER 24 HOURS, INCUBATION TO CONTINUE FOR 4 DAYS. 05/06/19 23:00 Urine For Antigen Detection Legionella Antigen - Final 05/06/19 23:00 Urine For Antigen Detection Streptococcus pneumoniae Antigen (M - Final - ....Imaging Cat Scan: Report Reviewed Problem List - Problems (1) TAMI (acute kidney injury) Code(s): N17.9 - ACUTE KIDNEY FAILURE, UNSPECIFIED (2) Hyponatremia Code(s): E87.1 - HYPO-OSMOLALITY AND HYPONATREMIA (3) Sepsis due to pneumonia Code(s): J18.9 - PNEUMONIA, UNSPECIFIED ORGANISM; A41.9 - SEPSIS, UNSPECIFIED ORGANISM Assessment/Plan Legionella PNA TAMI fever confusion Hyponatremia -- continue Levaquin -- Blood cultures neg so far, results of serologies pending -- monitor temp curve -- hyponatremia/renal function improving, wbc normal
[2019-05-09] MEDS: HEPARIN NA (PORCINE) 5,000 UNITS/ML 1ML VIAL SQ SCH ×3 (06:38→21:37)
[2019-05-09] MEDS: ALBUTEROL SO4 2.5/IPRATROPIUM 0.5 INH SOL 3 ML VIAL.NEB. NEB SCH ×4 (08:15→20:05)
[2019-05-09 08:41] LABS: BASO % 0.5 % (0-2.0); EOS % 1.4 % (0-4.5); HEMATOCRIT 31.7 % (35.4-49); HEMOGLOBIN 10.9 GM/dl (11.7-16.9); LYMPH % 12.1 % (8-40); MCH 30.8 pg (25.7-33.7); MCHC 34.5 g/dl (32.0-35.9); MEAN CELL VOLUME 89.2 fl (80-96); MONO % 10.5 % (3.8-10.2); NEUT % 75.5 % (42.8-82.8); PLATELET COUNT 204 K/MM3 (134-434); RBC 3.55 M/mm3 (4.00-5.60); RDW 13.7 % (11.9-15.9); WHITE BLOOD COUNT 9.5 K/mm3 (4.0-10.8)
[2019-05-09] MEDS ORDERED: PT OWN MED DRAWER 7, Y5N ONE (09:13)
[2019-05-09] MEDS: LACTOBACILLUS ACIDOPHILUS 1 TABLET PO SCH (09:16)
[2019-05-09] MEDS: SODIUM CHLORIDE 1,000 ML IV SCH (09:16)
[2019-05-09] MEDS: ACETAMINOPHEN 1000 MG/100 ML VIAL (NON FORMULARY) IVPB PRN ×2 (09:16→20:06)
[2019-05-09] MEDS: BUDESONIDE/FORMETEROL FUMARATE 160/4.5 mcg INHALER IH SCH (09:17)
[2019-05-09 09:35] LABS: ALBUMIN 2.4 g/dl (3.4-5.0); BILIRUBIN,TOTAL 0.8 mg/dl (0.2-1); CALCIUM 8.1 mg/dl (8.5-10); CREATININE 1.4 mg/dl (0.55-1.3); POTASSIUM 3.7 mmol/L (3.5-5.1); TOT PROT 5.6 g/dl (6.4-8.2)
--- NOTE | 2019-05-09 10:34 | PN ---
Physical Exam: SUBJECTIVE: Patient seen and examined, reports feeling better, states intermittent dry cough, no other complains. OBJECTIVE: Vital Signs Period Temp Pulse Resp BP Sys/Callahan Pulse Ox Last 24 Hr 98.7 F-100.9 F 95-108 18-19 148-168/81-89 95-98 GENERAL: The patient is awake, alert, and fully oriented, in no acute distress. HEAD: Normal with no signs of trauma. EYES: PERRL, extraocular movements intact, sclera anicteric, conjunctiva clear. No ptosis. ENT: Ears normal, nares patent, oropharynx clear without exudates, moist mucous membranes. NECK: Trachea midline, full range of motion, supple. LUNGS: positive bibasilar rales no wheezes, no crackles, no accessory muscle use. HEART: Regular rate and rhythm, S1, S2 without murmur, rub or gallop. ABDOMEN: Soft, nontender, nondistended, normoactive bowel sounds, no guarding, no rebound, no hepatosplenomegaly, no masses. EXTREMITIES: 2+ pulses, warm, well-perfused, no edema. NEUROLOGICAL: Cranial nerves II through XII grossly intact. Normal speech, gait not observed. PSYCH: Normal mood, normal affect. SKIN: Warm, dry, normal turgor, no rashes or lesions noted Laboratory Results - last 24 hr 05/08/19 05/08/19 05/08/19 06:30 07:25 07:25 WBC RBC Hgb Hct MCV MCH MCHC RDW Plt Count MPV Absolute Neuts (auto) Neutrophils % Lymphocytes % Monocytes % Eosinophils % Basophils % Sodium Potassium Chloride Carbon Dioxide Anion Gap BUN Creatinine Est GFR (CKD-EPI)AfAm Est GFR (CKD-EPI)NonAf Random Glucose Calcium Total Bilirubin AST ALT Alkaline Phosphatase Creatine Kinase 3345 H Creatine Kinase Index 0.2 CK-MB (CK-2) 9.7 H Troponin I 0.22 H Total Protein Albumin Urine Osmolality 488 05/09/19 05/09/19 05/09/19 08:31 08:31 08:31 WBC 9.5 RBC 3.55 L Hgb 10.9 L Hct 31.7 L MCV 89.2 MCH 30.8 MCHC 34.5 RDW 13.7 Plt Count 204 D MPV 9.0 Absolute Neuts (auto) 7.3 Neutrophils % 75.5 Lymphocytes % 12.1 D Monocytes % 10.5 H Eosinophils % 1.4 D Basophils % 0.5 D Sodium 135 L Potassium 3.7 Chloride 102 Carbon Dioxide 23 Anion Gap 10 BUN 16.0 Creatinine 1.4 H Est GFR (CKD-EPI)AfAm 66.01 Est GFR (CKD-EPI)NonAf 56.96 Random Glucose 118 H Calcium 8.1 L Total Bilirubin 0.8 AST 133 H ALT 95 H Alkaline Phosphatase 74 Creatine Kinase 2170 H Creatine Kinase Index CK-MB (CK-2) Troponin I Total Protein 5.6 L Albumin 2.4 L Urine Osmolality Active Medications Generic Name Dose Route Start Last Admin Trade Name Freq PRN Reason Stop Dose Admin Acetaminophen 1,000 mg 05/07/19 13:47 05/09/19 09:16 Ofirmev Injection - IVPB 1,000 mg Q6H PRN Administration PAIN LEVEL 1-5 Albuterol/Ipratropium 1 amp 05/07/19 00:30 05/09/19 08:15 Duoneb - NEB 1 amp RQID CARLOS ALBERTO Administration Budesonide/Formoterol Fumarate 1 puff 05/07/19 10:00 05/09/19 09:17 Symbicort 160/4.5mcg - IH 1 puff DAILY CARLOS ALBERTO Administration Heparin Sodium (Porcine) 5,000 unit 05/07/19 06:00 05/09/19 06:38 Heparin - SQ 5,000 unit TID CARLOS ALBERTO Administration Sodium Chloride 1,000 mls @ 125 mls/hr 05/07/19 09:00 05/09/19 09:16 Normal Saline - IV 125 mls/hr ASDIR CARLOS ALBERTO Administration Levofloxacin 750 mg in 150 mls @ 100 mls/hr 05/08/19 10:00 05/09/19 09:16 Levaquin 750 Mg Premixed Ivpb - IVPB 100 mls/hr DAILY CARLOS ALBERTO Administration Protocol Lactobacillus Acidophilus 1 tab 05/08/19 10:15 05/09/19 09:16 Bacid - PO 1 tab DAILY CARLOS ALBERTO Administration Microbiology 05/07/19 06:00 Sputum - Expectorated Sputum Culture - Preliminary NORMAL RESPIRATORY RIYA 05/06/19 20:35 Blood - Peripheral Venous Blood Culture - Preliminary NO GROWTH OBTAINED AFTER 48 HOURS, INCUBATION TO CONTINUE FOR 3 DAYS. 05/06/19 20:25 Blood - Peripheral Venous Blood Culture - Preliminary NO GROWTH OBTAINED AFTER 48 HOURS, INCUBATION TO CONTINUE FOR 3 DAYS. 05/06/19 23:00 Urine - Urine Clean Catch Urine Culture - Final NO GROWTH OBTAINED 05/06/19 23:00 Urine For Antigen Detection Legionella Antigen - Final 05/06/19 23:00 Urine For Antigen Detection Streptococcus pneumoniae Antigen (M - Final ASSESSMENT/PLAN: 53 year-old male with hx of asthma, who presented to the [facility] for evaluation of body aches, malaise, sweats and chills. Admitted with CAP. *Sepsis secondary to community-acquired pneumonia -CT: LLL pneumonia -Tm 102, leukocytosis resolved, afebrile -Urine antigen positive for Legionella; hospital infection control advised; received phone call from Alejandra Del Rosario RN, [facility] ([phone]) who will want to phone interview the patient on Friday - mental status -normal - ID following, on Levaquin -BC preliminary negative - Influenza A/ B negative - other viral panels pending - cont on Neb tx - encourage to use Incentive spirometer - sputum culture - normal riya *Hyponatremia- improved - Na 126.128>134 >135 - will f/u on urine, serum osm *Hypokalemia-resolved *Acute kidney injury -Cr 2.4 on admission, improved to 2.0>1.7>1.4 - will cont on IVF *Rhabdomyolysis -CPK trending down 3595> 3345>2170 - on IVF - *Elevated troponins- likely demand ischemia due to sepsis - Trop trending down - No acute ST changes on *Elevated LFT's - likely due to sepsis - levels trending down, asymptomatic - will check Hep profile - will f/u on LFT's - * Hx of asthma - will cont on home dose Symbicort *FEN Fluids: NS@125mL/hr Electrolytes: replete as indicated Nutrition: regular diet DVT prophylaxis: subq heparin Dispo: continues to require inpatient care. Full code. Visit type - Emergency Visit Emergency Visit: Yes ED Registration Date: 05/06/19 Care time: The patient presented to the Emergency Department on the above date and was hospitalized for further evaluation of their emergent condition. - New Patient This patient is new to me today: No - Critical Care Critical Care patient: No
--- NOTE | 2019-05-09 12:12 | PN ---
Progress Note, Physician History of Present Illness: States he feels better. Cough is resolving and no longer has hiccups. Tmax 100.9F. Currently afebrile. - Current Medication List Current Medications: Active Medications Acetaminophen (Ofirmev Injection -) 1,000 mg IVPB Q6H PRN PRN Reason: PAIN LEVEL 1-5 Last Admin: 05/09/19 09:16 Dose: 1,000 mg Albuterol/Ipratropium (Duoneb -) 1 amp NEB RQID [facility] Last Admin: 05/09/19 08:15 Dose: 1 amp Budesonide/Formoterol Fumarate (Symbicort 160/4.5mcg -) 1 puff IH DAILY [facility] Last Admin: 05/09/19 09:17 Dose: 1 puff Heparin Sodium (Porcine) (Heparin -) 5,000 unit SQ TID [facility] Last Admin: 05/09/19 06:38 Dose: 5,000 unit Sodium Chloride (Normal Saline -) 1,000 mls @ 125 mls/hr IV ASDIR CARLOS ALBERTO Last Admin: 05/09/19 09:16 Dose: 125 mls/hr Levofloxacin (Levaquin 750 Mg Premixed Ivpb -) 750 mg in 150 mls @ 100 mls/hr IVPB DAILY [facility]; Protocol Last Admin: 05/09/19 09:16 Dose: 100 mls/hr Lactobacillus Acidophilus (Bacid -) 1 tab PO DAILY [facility] Last Admin: 05/09/19 09:16 Dose: 1 tab - Objective Vital Signs: Vital Signs Temperature 98.7 F 05/09/19 10:00 Pulse Rate 95 H 05/09/19 10:00 Respiratory Rate 05/09/19 10:00 Blood Pressure 163/84 05/09/19 10:00 O2 Sat by Pulse Oximetry (%) 97 05/09/19 10:00 Constitutional: Yes: No Distress, Calm Cardiovascular: Yes: Regular Rate and Rhythm Respiratory: Yes: Rales (Lt base) Gastrointestinal: Yes: Normal Bowel Sounds, Soft Genitourinary: Yes: WNL Musculoskeletal: Yes: WNL Extremities: Yes: WNL Edema: No Integumentary: Yes: WNL Neurological: Yes: Alert, Oriented Labs: CBC, BMP 05/09/19 08:31 05/09/19 08:31 INR, PTT INR 1.32 (0.82-1.09) H 05/07/19 07:25 Microbiology 05/07/19 06:00 Sputum - Expectorated Sputum Culture - Preliminary NORMAL RESPIRATORY DEYSI 05/06/19 20:35 Blood - Peripheral Venous Blood Culture - Preliminary NO GROWTH OBTAINED AFTER 48 HOURS, INCUBATION TO CONTINUE FOR 3 DAYS. 05/06/19 20:25 Blood - Peripheral Venous Blood Culture - Preliminary NO GROWTH OBTAINED AFTER 48 HOURS, INCUBATION TO CONTINUE FOR 3 DAYS. 05/06/19 23:00 Urine - Urine Clean Catch Urine Culture - Final NO GROWTH OBTAINED 05/06/19 23:00 Urine For Antigen Detection Legionella Antigen - Final 05/06/19 23:00 Urine For Antigen Detection Streptococcus pneumoniae Antigen (M - Final Problem List - Problems (1) TAMI (acute kidney injury) Code(s): N17.9 - ACUTE KIDNEY FAILURE, UNSPECIFIED (2) Hyponatremia Code(s): E87.1 - HYPO-OSMOLALITY AND HYPONATREMIA (3) Sepsis due to pneumonia Code(s): J18.9 - PNEUMONIA, UNSPECIFIED ORGANISM; A41.9 - SEPSIS, UNSPECIFIED ORGANISM Assessment/Plan Legionella PNA TAMI fever confusion - resolved -- continue Levaquin -- leukocytosis/renal function improving, temps trending down -- continue monitor
[2019-05-10] MEDS: HEPARIN NA (PORCINE) 5,000 UNITS/ML 1ML VIAL SQ SCH ×3 (06:47→21:52)
[2019-05-10] MEDS: ALBUTEROL SO4 2.5/IPRATROPIUM 0.5 INH SOL 3 ML VIAL.NEB. NEB SCH ×4 (08:00→20:59)
[2019-05-10 08:37] LABS: BASO % 0.3 % (0-2.0); EOS % 2.5 % (0-4.5); HEMATOCRIT 34.1 % (35.4-49); HEMOGLOBIN 11.2 GM/dl (11.7-16.9); LYMPH % 13.8 % (8-40); MCH 29.7 pg (25.7-33.7); MCHC 32.8 g/dl (32.0-35.9); MEAN CELL VOLUME 90.7 fl (80-96); MEAN PLT VOLUME 8.4 fl (7.5-11.1); MONO % 7.5 % (3.8-10.2); NEUT % 75.9 % (42.8-82.8); PLATELET COUNT 320 K/MM3 (134-434); RBC 3.75 M/mm3 (4.00-5.60); RDW 13.6 % (11.9-15.9); WHITE BLOOD COUNT 10.9 K/mm3 (4.0-10.8)
[2019-05-10 08:52] LABS: ALBUMIN 2.5 g/dl (3.4-5.0); BILIRUBIN,TOTAL 0.9 mg/dl (0.2-1); CALCIUM 8.5 mg/dl (8.5-10); CREATININE 1.2 mg/dl (0.55-1.3); POTASSIUM 3.5 mmol/L (3.5-5.1); TOT PROT 5.9 g/dl (6.4-8.2)
[2019-05-10] MEDS: SODIUM CHLORIDE 1,000 ML IV SCH (10:10)
[2019-05-10] MEDS: LACTOBACILLUS ACIDOPHILUS 1 TABLET PO SCH (10:10)
[2019-05-10] MEDS: BUDESONIDE/FORMETEROL FUMARATE 160/4.5 mcg INHALER IH SCH (10:11)
--- NOTE | 2019-05-10 18:20 | PN ---
Physical Exam: 53 AA M h/o asthma (never intubated), admitted for Legionella PNA complicated by transaminitis, TAMI and rhabdomyolysis. Labs improving. Patient tolerating PO , feeling better. Denies fever, chills. On IV Levaquin for abx. PE VSS GA comfortable, sitting up in bed, AAox3 HEENT NC/AT, clear conjunctiva, neck supple, MMM Chest CTAB, no wheezing or crackles CVS s1, S2+, RRR, no m/r/g Abd Soft, NT, ND, BS+ Ext NO LE edema, moves all 4 ext. Vital Signs - 24 hr 05/09/19 05/09/19 05/10/19 21:00 22:00 00:42 Temperature 99.4 F 98.6 F Pulse Rate 102 H 99 H Respiratory 18 19 Rate Blood Pressure 175/91 H 167/107 H O2 Sat by Pulse 96 Oximetry (%) 05/10/19 05/10/19 05/10/19 01:00 05:00 06:03 Temperature 100.2 F H Pulse Rate 97 H Respiratory 19 Rate Blood Pressure 170/102 H 176/106 H O2 Sat by Pulse 98 Oximetry (%) 05/10/19 05/10/19 09:00 14:15 Temperature 98.4 F Pulse Rate 100 H Respiratory 16 19 Rate Blood Pressure 154/93 O2 Sat by Pulse 99 98 Oximetry (%) Microbiology 05/07/19 06:00 Sputum - Expectorated Gram Stain - Final 05/07/19 06:00 Sputum - Expectorated Sputum Culture - Final NORMAL RESPIRATORY DEYSI 05/06/19 20:35 Blood - Peripheral Venous Blood Culture - Preliminary NO GROWTH OBTAINED AFTER 72 HOURS, INCUBATION TO CONTINUE FOR 2 DAYS. 05/06/19 20:25 Blood - Peripheral Venous Blood Culture - Preliminary NO GROWTH OBTAINED AFTER 72 HOURS, INCUBATION TO CONTINUE FOR 2 DAYS. 05/06/19 23:00 Urine - Urine Clean Catch Urine Culture - Final NO GROWTH OBTAINED 05/06/19 23:00 Urine For Antigen Detection Legionella Antigen - Final 05/06/19 23:00 Urine For Antigen Detection Streptococcus pneumoniae Antigen (M - Final Laboratory Results - last 24 hr 05/10/19 05/10/19 05/10/19 07:00 07:15 07:15 WBC 10.9 H RBC 3.75 L Hgb 11.2 L Hct 34.1 L MCV 90.7 MCH 29.7 MCHC 32.8 RDW 13.6 Plt Count 320 D MPV 8.4 Absolute Neuts (auto) 8.3 Neutrophils % 75.9 Lymphocytes % 13.8 Monocytes % 7.5 Eosinophils % 2.5 Basophils % 0.3 Sodium 136 Potassium 3.5 Chloride 101 Carbon Dioxide 26 Anion Gap 9 BUN 10.0 Creatinine 1.2 Est GFR (CKD-EPI)AfAm 79.53 Est GFR (CKD-EPI)NonAf 68.62 Random Glucose 130 H Calcium 8.5 Total Bilirubin 0.9 AST 103 H ALT 97 H Alkaline Phosphatase 80 Creatine Kinase 1466 H Creatine Kinase Index 0.2 CK-MB (CK-2) 3.5 Total Protein 5.9 L Albumin 2.5 L TSH 1.47 Current Medications Generic Name Dose Route Start Last Admin Trade Name Freq PRN Reason Stop Dose Admin Albuterol/Ipratropium 1 amp 05/07/19 00:30 05/10/19 12:00 Duoneb - NEB 1 amp RQID CARLOS ALBERTO Administration Budesonide/Formoterol Fumarate 1 puff 05/07/19 10:00 05/10/19 10:11 Symbicort 160/4.5mcg - IH 1 puff DAILY CARLOS ALBERTO Administration Heparin Sodium (Porcine) 5,000 unit 05/07/19 06:00 05/10/19 13:57 Heparin - SQ 5,000 unit TID CARLOS ALBERTO Administration Sodium Chloride 1,000 mls @ 125 mls/hr 05/07/19 09:00 05/10/19 10:10 Normal Saline - IV Not Given ASDIR CARLOS ALBERTO Levofloxacin 750 mg in 150 mls @ 100 mls/hr 05/08/19 10:00 05/10/19 10:09 Levaquin 750 Mg Premixed Ivpb - IVPB 100 mls/hr DAILY CARLOS ALBERTO Administration Protocol Lactobacillus Acidophilus 1 tab 05/08/19 10:15 05/10/19 10:10 Bacid - PO 1 tab DAILY CARLOS ALBERTO Administration A/P: 53 AA M, admitted for legionella PNA complicated by TAMI, transaminitis, rhabdo, hyponatremia all improving. Legionella PNA Cont. IV Levaquin, ID recommendation appreciated to transition patient to PO abx Cont. trend chem/LFTs/CK, avoid nephrotoxins, IV/PO aggressive hydration, Tylenol for pain avoid NSAIDs Phone interveiw with LIANE Del Rosario RN, . Nebs PRN, incentive spirometer, early ambulation as tolerated Asthma not in acute exacerbation nebs PRN Hyponatremia resolved. TAMI improved, avoid nephrotoxins, PO hydration no signs of urinary retention, denies LUTS Rhabdomyolysis due to legionella, improving, cont. PO hydration monitor CRE/LFTs Troponemia due to sepsis, demand ischemia DVT ppx: Heparin SC Send HIV (patient consented), TSH, RPR, awaiting Hep panel Visit type - Emergency Visit Emergency Visit: Yes ED Registration Date: 05/06/19 Care time: The patient presented to the Emergency Department on the above date and was hospitalized for further evaluation of their emergent condition. - New Patient This patient is new to me today: Yes Date on this admission: 05/10/19 - Critical Care Critical Care patient: No - Discharge Referral Referred to [facility] No
[2019-05-11 00:08] LABS: HEP B CORE AB, TOT Negative (Negative)
[2019-05-11 06:15] VITALS: PULSE 95; TEMP 98.3
[2019-05-11] MEDS: HEPARIN NA (PORCINE) 5,000 UNITS/ML 1ML VIAL SQ SCH (06:16)
[2019-05-11 06:44] VITALS: BP 153/95
--- NOTE | 2019-05-11 07:23 | PN ---
Progress Note, Physician History of Present Illness: stable much better back to his baseline - Current Medication List Current Medications: Active Medications Albuterol/Ipratropium (Duoneb -) 1 amp NEB RQID [facility] Last Admin: 05/10/19 20:59 Dose: Not Given Budesonide/Formoterol Fumarate (Symbicort 160/4.5mcg -) 1 puff IH DAILY [facility] Last Admin: 05/10/19 10:11 Dose: 1 puff Heparin Sodium (Porcine) (Heparin -) 5,000 unit SQ TID CARLOS ALBERTO Last Admin: 05/11/19 06:16 Dose: 5,000 unit Sodium Chloride (Normal Saline -) 1,000 mls @ 125 mls/hr IV ASDIR CARLOS ALBERTO Last Admin: 05/10/19 10:10 Dose: Not Given Levofloxacin (Levaquin 750 Mg Premixed Ivpb -) 750 mg in 150 mls @ 100 mls/hr IVPB DAILY CARLOS ALBERTO; Protocol Last Admin: 05/10/19 10:09 Dose: 100 mls/hr Lactobacillus Acidophilus (Bacid -) 1 tab PO DAILY CARLOS ALBERTO Last Admin: 05/10/19 10:10 Dose: 1 tab - Objective Vital Signs: Vital Signs Temperature 98.3 F 05/11/19 06:00 Pulse Rate 95 H 05/11/19 06:00 Respiratory Rate 19 05/11/19 06:00 Blood Pressure 153/95 05/11/19 06:00 O2 Sat by Pulse Oximetry (%) 97 05/10/19 22:00 Constitutional: Yes: No Distress, Calm Cardiovascular: Yes: S1, S2 Respiratory: Yes: Regular, CTA Bilaterally Gastrointestinal: Yes: Normal Bowel Sounds, Soft Musculoskeletal: Yes: WNL Extremities: Yes: WNL Neurological: Yes: Alert, Oriented Psychiatric: Yes: Alert, Oriented Labs: INR, PTT INR 1.32 (0.82-1.09) H 05/07/19 07:25 Assessment/Plan Problem List - Problems (1) TAMI (acute kidney injury) Code(s): N17.9 - ACUTE KIDNEY FAILURE, UNSPECIFIED (2) Hyponatremia Code(s): E87.1 - HYPO-OSMOLALITY AND HYPONATREMIA (3) Sepsis due to pneumonia Code(s): J18.9 - PNEUMONIA, UNSPECIFIED ORGANISM; A41.9 - SEPSIS, UNSPECIFIED ORGANISM Assessment/Plan Legionella PNA TAMI fever confusion - resolved -- continue Levaquin -- leukocytosis/renal function improving, temps trending down -- continue monitor
[2019-05-11 07:51] LABS: BASO % 0.5 % (0-2.0); EOS % 2.2 % (0-4.5); HEMATOCRIT 33.6 % (35.4-49); MCH 29.9 pg (25.7-33.7); MCHC 32.9 g/dl (32.0-35.9); MEAN CELL VOLUME 90.9 fl (80-96); MONO % 7.4 % (3.8-10.2); NEUT % 74.9 % (42.8-82.8); PLATELET COUNT 422 K/MM3 (134-434); RBC 3.69 M/mm3 (4.00-5.60); RDW 13.2 % (11.9-15.9); WHITE BLOOD COUNT 11.7 K/mm3 (4.0-10.8)
[2019-05-11 07:58] LABS: ALBUMIN 2.4 g/dl (3.4-5.0); BILIRUBIN,TOTAL 0.8 mg/dl (0.2-1); CALCIUM 8.8 mg/dl (8.5-10); CREATININE 1.3 mg/dl (0.55-1.3); POTASSIUM 3.6 mmol/L (3.5-5.1); TOT PROT 5.9 g/dl (6.4-8.2)
[2019-05-11] MEDS: ALBUTEROL SO4 2.5/IPRATROPIUM 0.5 INH SOL 3 ML VIAL.NEB. NEB SCH (08:10)
[2019-05-11] MEDS: LACTOBACILLUS ACIDOPHILUS 1 TABLET PO SCH (10:35)
[2019-05-11] MEDS: BUDESONIDE/FORMETEROL FUMARATE 160/4.5 mcg INHALER IH SCH (10:35)
--- NOTE | 2019-05-11 11:07 | DS ---
Documentation entered by Isidra Li SCRIBE, acting as scribe for Rhea Chicas NP. Physical Exam: SUBJECTIVE: Patient seen and examined OBJECTIVE: Vital Signs Period Temp Pulse Resp BP Sys/Callahan Pulse Ox Last 24 Hr 98.1 F-98.9 F 95-101 16-19 153-156/80-95 97-99 PHYSICAL EXAM GENERAL: The patient is awake, alert, and fully oriented, in no acute distress. ENT: Ears normal, nares patent, oropharynx clear without exudates, moist mucous membranes. LUNGS: Breath sounds equal, clear to auscultation bilaterally, no wheezes, no crackles, no accessory muscle use. HEART: Regular rate and rhythm, S1, S2 without murmur, rub or gallop. ABDOMEN: Soft, nontender, nondistended, normoactive bowel sounds, no guarding, no rebound, no hepatosplenomegaly, no masses. EXTREMITIES: 2+ pulses, warm, well-perfused, no edema. NEUROLOGICAL: Cranial nerves II through XII grossly intact. Normal speech, gait not observed. PSYCH: Normal mood, normal affect. SKIN: Warm, dry, normal turgor, no rashes or lesions noted. LABS Laboratory Results - last 24 hr 05/08/19 05/10/19 05/10/19 07:25 07:00 07:00 WBC RBC Hgb Hct MCV MCH MCHC RDW Plt Count MPV Absolute Neuts (auto) Neutrophils % Lymphocytes % Monocytes % Eosinophils % Basophils % Sodium Potassium Chloride Carbon Dioxide Anion Gap BUN Creatinine Est GFR (CKD-EPI)AfAm Est GFR (CKD-EPI)NonAf Random Glucose Hemoglobin A1c % 5.8 Calcium Total Bilirubin AST ALT Alkaline Phosphatase Creatine Kinase Creatine Kinase Index CK-MB (CK-2) Total Protein Albumin TSH 1.47 RPR Titer Hep A IgM Ab Confirm Negative Hepatitis A Ab Total Negative Hep Bs Antigen Negative Hep Bs Antibody Non reactive Hep B Core Total Ab Negative Hep B Core IgM Ab Negative Hepatitis Be Antibody Negative Hepatitis Be Antigen Negative 05/10/19 05/10/19 05/10/19 07:00 07:15 07:15 WBC 10.9 H RBC 3.75 L Hgb 11.2 L Hct 34.1 L MCV 90.7 MCH 29.7 MCHC 32.8 RDW 13.6 Plt Count 320 D MPV 8.4 Absolute Neuts (auto) 8.3 Neutrophils % 75.9 Lymphocytes % 13.8 Monocytes % 7.5 Eosinophils % 2.5 Basophils % 0.3 Sodium 136 Potassium 3.5 Chloride 101 Carbon Dioxide 26 Anion Gap 9 BUN 10.0 Creatinine 1.2 Est GFR (CKD-EPI)AfAm 79.53 Est GFR (CKD-EPI)NonAf 68.62 Random Glucose 130 H Hemoglobin A1c % Calcium 8.5 Total Bilirubin 0.9 AST 103 H ALT 97 H Alkaline Phosphatase 80 Creatine Kinase 1466 H Creatine Kinase Index 0.2 CK-MB (CK-2) 3.5 Total Protein 5.9 L Albumin 2.5 L TSH RPR Titer Nonreactive Hep A IgM Ab Confirm Hepatitis A Ab Total Hep Bs Antigen Hep Bs Antibody Hep B Core Total Ab Hep B Core IgM Ab Hepatitis Be Antibody Hepatitis Be Antigen 05/11/19 07:00 WBC RBC Hgb Hct MCV MCH MCHC RDW Plt Count MPV Absolute Neuts (auto) Neutrophils % Lymphocytes % Monocytes % Eosinophils % Basophils % Sodium 137 Potassium 3.6 Chloride 100 Carbon Dioxide 28 Anion Gap 9 BUN 11.0 Creatinine 1.3 Est GFR (CKD-EPI)AfAm 72.20 Est GFR (CKD-EPI)NonAf 62.29 Random Glucose 142 H Hemoglobin A1c % Calcium 8.8 Total Bilirubin 0.8 AST 91 H ALT 94 H Alkaline Phosphatase 92 D Creatine Kinase Creatine Kinase Index CK-MB (CK-2) Total Protein 5.9 L Albumin 2.4 L TSH RPR Titer Hep A IgM Ab Confirm Hepatitis A Ab Total Hep Bs Antigen Hep Bs Antibody Hep B Core Total Ab Hep B Core IgM Ab Hepatitis Be Antibody Hepatitis Be Antigen HOSPITAL COURSE: Date of Admission:05/06/19 Date of Discharge: 05/11/19 Pre-Hospital Course 53 year-old male with no significant PMH, presented to the ED for evaluation of body aches, malaise, sweats and chills. Symptoms started six days ago when he returned from a trip to [place]. Self-treated with OTC remedies. Decreased PO intake Family members report patient's seemed slightly confused, his gait was unsteady, and he an episode of fecal incontinence which prompted them to bring him to the ED. ED Course (1) T100.6, p104, WBC 13.0 (2) Na 126, K 3.2, (3) BUN 27, Cr 2.4 (4) CPK 3495 (5) Troponin 0.32-->0.32 (6) AST 140 Subsequent Hospital Course 53 year-old male admitted for Legionella PNA complicated by transaminitis, TAMI and rhabdomyolysis. Sepsis secondary to Legionella pneumonia --CT: LLL pneumonia; Urine antigen positive for Legionella; recent travel to a conference in [facility] aware --Tm 101.9, leukocytosis resolved --treated with levofloxacin Hyponatremia --Na 126 on admission --likely secondary to no change despite fluid resuscitation; may be element of SIADH in setting of sepsis --urine, serum osm ordered --check lytes in am, if no improvement or worsens, consider renal consult Hypokalemia -resolved Acute kidney injury SIADH Hypoonatrmemia --likely due to sepsis --Cr 2.4 on admission, 1.3 on discharge; Na normalized Rhabdomyolysis --IV fluids Elevated troponins --flat trending, likely demand from sepsis; no evidence of ACS Minutes to complete discharge: 35 Discharge Summary Problems reviewed: Yes Reason For Visit: PNEUMONIA Current Active Problems TAMI (acute kidney injury) (Acute) Hyponatremia (Acute) Pneumonia (Acute) Sepsis due to pneumonia (Acute) Condition: Improved - Instructions Diet, Activity, Other Instructions: During your hospital stay you were treated for Legionella pneumonia. You were treated with an antibiotic called levofloxacin. A prescription has been sent to your pharmacy for the same antibiotic in pill form. Take this medication as directed and be sure to finish all the medication. It is very important you follow up with a primary care provider within 1 week of your discharge. [facility] at the [facility]. Contact information is enclosed. Call to make an appointment for one week. You will also need a repeat chest xray in 6 weeks. Referrals: Orlando Marvin MD [Staff Physician] - 1 Week Disposition: HOME - Home Medications Comprehensive Discharge Medication List: Ambulatory Orders Budesonide/Formeterol Fumarate [SYMBICORT 160/4.5mcg -] 1 puff IN DAILY This patient is new to me today: No Emergency Visit: Yes ED Registration Date: 05/06/19 Care time: The patient presented to the Emergency Department on the above date and was hospitalized for further evaluation of their emergent condition. Critical Care patient: No - Discharge Referral Referred to [facility] Rhea Echols, STEPHEN: This documentation has been prepared by the Guillermo godinez Maria, SCRIBE, under my direction and personally reviewed by me in its entirety. I confirm that the documentation accurately reflects all work, treatment, procedures, and medical decision making performed by me.
[2019-05-11] MEDS ORDERED: FUROSEMIDE 40 MG/4 ML INJECTABLE VIAL IVPUSH ONE (12:30)
== END 2019-05-11 13:23 | disposition home or self-care (01) | DRG 720 ==
LOC: SUPCPDRO 17:31 → FER 17:31 → FM/S 20:49
PROVIDERS: ADMIT Internal Medicine; ATTEND Nurse Practitioner Acute Care
DX: A41.89 Other specified sepsis (principal); R50.9 Fever, unspecified; R06.6 Hiccough; J45.909 Unspecified asthma, uncomplicated; D72.829 Elevated white blood cell count, unspecified; N17.9 Acute kidney failure, unspecified; E87.1 Hypo-osmolality and hyponatremia; E87.6 Hypokalemia; J18.9 Pneumonia, unspecified organism; M62.82 Rhabdomyolysis; I24.8 Other forms of acute ischemic heart disease; R41.0 Disorientation, unspecified; R15.9 Full incontinence of feces; A48.1 Legionnaires' disease
CPT/HCPCS: 36415; 70450-TC; 71046-TC-FY; 71250-TC; 80048; 80053; 80076; 81003; 81015; 82140; 82550; 82553; 82565; 82803; 82977; 83036; 83605; 83690; 83735; 83930; 83935; 84100; 84300; 84443; 84484; 85025; 85379; 85610; 85651; 85730; 86140; 86593; 86704; 86706; 86707; 86708; 86709; 87040; 87070; 87086; 87205; 87340; 87389; 87633; 87804; 87899; 93005; 94640; 99285-25; J0131; J1644; J7030